=== PATIENT | male | born 1960 | race Caucasian/White ===

== ENCOUNTER 2017-10-27 10:11 | Outpatient (CLI) | END 2017-10-27 10:12 | disposition home or self-care (01) | LOC: FCC-LAB 10:11 | PROVIDERS: ATTEND Family Medicine | DX: E78.00 Pure hypercholesterolemia, unspecified (principal); I25.10 Atherosclerotic heart disease of native coronary artery without angina pectoris; Z95.5 Presence of coronary angioplasty implant and graft | CPT/HCPCS: 36415; 80053; 80061 ==